=== PATIENT | female | born 1985 | race Caucasian/White ===

== ENCOUNTER → 2017-04-28 | Outpatient (CLI) | payer BC, OTHER ==
--- NOTE | 2017-04-28 12:24 | XR ---
EXAM TYPE: LUMBAR SPINE X RAY SERIES COMPARISON: 06/15/2012 HISTORY: Back pain TECHNIQUE: 4 views are submitted. FINDINGS: Alignment is anatomic. The pedicles are intact. The transverse processes are intact. There is no s pondylolysis or spondylolisthesis. Postsurgical change involving the right upper quadrant. Degenerat tyrel change involving L5-S1 with facet arthropathy. Degenerative disc disease T12-L1 and L1-L2. IMPRESSION: 1. Multilevel degenerative disc disease.
== END ==
LOC: RADXRMAIN 11:47
PROVIDERS: ATTEND Family Medicine
DX: M51.36 Other intervertebral disc degeneration, lumbar region (principal)
CPT/HCPCS: 72110